=== PATIENT | male | born 1990 | race Caucasian/White ===

== ENCOUNTER 2021-04-20 16:55 | Emergency (ER) | payer OTHER ==
[2021-04-20 18:41] LABS: BASOPHIL 0.3 % (0-2); EOSINOPHIL 0 % (0-5); HCT 43.2 % (42.0-52.0); HGB 15.3 g/dl (13.2-18.0); LYMPHOCYTE 4.5 % (15-48); MCH 31.2 pg (25.0-31.0); MCHC 35.4 g/dL (32.0-36.0); MCV 88.2 fL (78.0-100.0); MONOCYTE 7.3 % (0-12); MPV 10.3 fL (6.0-9.5); NRBC 0; PLT 260 K/uL (150-400); RDW 11.7 % (11.5-14.0); WBC 26.2 K/uL (4.0-10.5)
[2021-04-20 18:47] LABS: NEUTROPHIL 87.1 % (41-80)
[2021-04-20 19:03] LABS: ALBUMIN 5.1 g/dL (3.4-5.0); BILIRUBIN - TOTAL 0.6 mg/dL (0.2-1.0); BUN/CREAT RATIO (CALC) 15.6 RATIO; CREATININE 0.9 mg/dL (0.67-1.17); GLOBULIN (CALCULATION) 3.8 g/dL; POTASSIUM 3.7 mmol/L (3.5-5.1); TOTAL PROTEIN 8.9 g/dL (6.4-8.2)
[2021-04-20 19:19] LABS: CORONAVIRUS 2019 SARS-COV-2 NEGATIVE (NEGATIVE); INFLUENZA A NAA NEGATIVE (NEGATIVE)
[2021-04-20 19:46] LABS: INR 1.13 (0.9-1.2); PROTHROMBIN TIME 13.9 SECONDS (11.8-13.4)
[2021-04-20 19:48] LABS: AMPHETAMINES NEGATIVE (NEGATIVE); BARBITURATES NEGATIVE (NEGATIVE); ECSTASY (MDMA) NEGATIVE (NEGATIVE); MARIJUANA (THC) POSITIVE (NEGATIVE); METHADONE NEGATIVE (NEGATIVE); OPIATES POSITIVE (NEGATIVE); OXYCODONE NEGATIVE (NEGATIVE)
[2021-04-20] MEDS ORDERED: OXY-IR 5MG5 MG PO (20:34)
== END 2021-04-20 22:00 | disposition home or self-care (01) ==
LOC: FER 16:55
PROVIDERS: Emergency Medicine; Nurse Practitioner Family
DX: S22.059A Unspecified fracture of T5-T6 vertebra, initial encounter for closed fracture (principal); S22.069A Unspecified fracture of T7-T8 vertebra, initial encounter for closed fracture; J43.9 Emphysema, unspecified; R07.89 Other chest pain; Z20.822 Contact with and (suspected) exposure to COVID-19; Z87.891 Personal history of nicotine dependence
CPT/HCPCS: 36415; 71045; 71275; 80053; 80305; 84484; 85025; 85379; 85610; 93005; J2405; Q9967; U0002